=== PATIENT | male | born 1970 | race Caucasian/White ===

== ENCOUNTER 2019-05-11 08:55 | Day surgery (SDC) | payer OTHER ==
[~2019-05-11] VITALS: Ht 175.3 cm; Wt 120.7 kg
[~2019-05-11 08:55] MED LIST: HUMIRA10 MG/0.1; METFORMIN HCL500 MG PO
--- NOTE | 2019-05-11 13:26 | NUR ---
05/11/19 1326 Nehemiah Mahmood CBG 123 AT 1326. TIRE DUSTER AWARE.
--- NOTE | 2019-05-11 14:04 | NUR ---
ICED WATER GIVEN. CALL LIGHT IS WITHIN REACH. FAMILY AT THE BEDSIDE.
--- NOTE | 2019-05-11 14:35 | NUR ---
LE 1415: PT IS REQUESTING A SNACK, HE IS GIVEN SUGAR FREE JELLO AND PUDDING. DC CRITERIA IS REVIEWED.
--- NOTE | 2019-05-11 15:04 | NUR ---
PT IS REPORING MINIMAL PAIN, STATES IT IS MORE JUST DISCOMFORT. PT HAS BEEN ABLE TO EAT AND DRINK WITHOUT ISSUE. CALL LIGHT WITHIN REACH. AT BEDSIDE. NO ADDITIONAL NEEDS AT THIS TIME.
--- NOTE | 2019-05-11 15:34 | NUR ---
MELISA 1515: PT WOULD LIKE TO GO HOME AT THIS TIME. VERBAL DC INSTRUCTIONS ARE GIVEN TO THE PT AND . THEY BOTH VERBALIZE UNDERSTANDING. QUESTIONS ARE ASKED AND ANSWERED. PT IS EDUCATED ON HOW TO BEST DRESS HIMSELF AND TO OPEN HIS CURTAIN WHEN READY. PT IS TAKEN TO VEHICLE VIA WC. HE IS ABLE TO TRANSFER HIMSELF FROM WC TO VEHICLE.
--- NOTE | 2019-05-11 15:34 | NUR ---
MELISA 1510: PT WOULD LIKE TO GET UP OOB TO USE THE RESTROOM. HE IS ABLE TO AMBULATE HIMSELF TO AND FROM THE RESTROOM. HE IS ABLE TO VOID 325ML'S OF DARK YELLOW URINE.
--- NOTE | 2019-05-11 15:36 | OR ---
[facility] [address], [place] [address] Signed DATE OF OPERATION: 05/11/2019 SURGEON: Alexandra Serna MD PREOPERATIVE DIAGNOSIS: Reducible left inguinal hernia. POSTOPERATIVE DIAGNOSIS: Reducible left indirect inguinal hernia. PROCEDURE: Left Rachael onlay mesh inguinal herniorrhaphy. ESTIMATED BLOOD LOSS: None. INDICATIONS: Merle is a 48-year-old gentleman with a body mass index of 41. 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 Several months ago, he noticed pain and swelling in the left groin. He had been to his primary care provider. An ultrasound confirmed a left inguinal hernia containing fat. It seemed to be reducible. He also had small epididymal cyst. He had been to his urologist and they felt to leave that alone. He was asked to see me as a general surgeon for the inguinal hernia. It was difficult to ascertain on physical exam secondary to his body habitus. I gave him a brochure on hernias and we looked at that carefully together. He understands the nature of an inguinal hernia along with the difference between a primary suture repair and a mesh repair. He also understands the expected intraop and postop course. There is risk to surgery including, but not limited to, bleeding, infection, scarring, change in contour of the skin, damage to the nerves, ischemic orchitis, recurrent hernias, and chronic pain. He had expressed his understanding and wished to proceed. DESCRIPTION OF PROCEDURE: I met with Merle and his in our preop area. We all agreed it was the left groin and we marked that appropriately. After this, Merle was taken into operating room and placed in a supine position under general endotracheal tube anesthesia. He was given preoperative antibiotics along with subcutaneous heparin. SCDs were utilized. He was then prepped and draped in the usual sterile fashion. We made a standard oblique incision over the left groin and carried that down through the tissue bluntly and with the cautery. The external oblique fascia was opened along its length and developed medially and laterally. The ilioinguinal and iliohypogastric nerves were visualized and Electronically Signed By: ALEXANDRA SERNA MD 05/11/19 1536 PATIENT NAME: MERLE LONDON OPERATIVE REPORT DATE OF : 72 REPORT #: [id number] PHYSICIAN: ALEXANDRA SERNA MD PCP: MIKA ELISE PA-C REPORT IS CONFIDENTIAL AND NOT TO BE RELEASED WITHOUT AUTHORIZATION [facility] [address], [place] [address] Signed protected throughout the case. The cord structures were then elevated to the level of pubic tubercle with the help of a [place] drain. The direct space was intact. We dissected out the anteromedial side of the cord structures at the level of deep ring. We easily encountered his moderate-sized indirect inguinal hernia containing fat. It was sutured ligated at the neck, then amputated and passed off the field. After this, a piece of flat Prolene mesh was cut to fit his groin and a slit was made in the mesh to accommodate the cord structures at the level of the deep ring. The mesh was held in place medially and laterally with the help of running #1 Prolene suture. This gave excellent coverage of the direct and indirect spaces. There was no undue tension of the mesh around the cord structures at the level of deep ring. Local anesthetic was then copiously injected into wound. The wound was irrigated and suctioned out until clear. The external oblique fascia was closed over the repair with the help of a running 2-0 PDS suture. Chuck's fascia was reapproximated with a running 2-0 PDS suture. The dermis was reapproximated with interrupted 3-0 subcuticular Monocryl sutures. The skin was reapproximated with a running 5-0 fast-absorbing plain gut suture. Dry gauze and tape were then applied. Merle was then awakened from his anesthesia, extubated in the OR, and taken to recovery room in stable condition. Alexandra Serna MD ALB/MODL /[id number] cc: ELISHA Johnson MD Andrew L Bower, MD Copies: MIKA ELISE PA-C, ANDREW L MD ~ Electronically Signed By: ALEXANDRA SERNA MD 05/11/19 1536 PATIENT NAME: MERLE LONDON OPERATIVE REPORT DATE OF : 72 REPORT #: [id number] PHYSICIAN: ALEXANDRA SERNA MD PCP: MIKA ELISE PA-C REPORT IS CONFIDENTIAL AND NOT TO BE RELEASED WITHOUT AUTHORIZATION
== END 2019-05-11 15:20 | disposition home or self-care (01) ==
LOC: DS 08:55
PROVIDERS: Colon & Rectal Surgery
PROC: 0YU60JZ Supplement Left Inguinal Region with Synthetic Substitute, Open Approach (ICD-10-PCS; principal; 2019-05-11 11:15)
DX: K40.90 Unilateral inguinal hernia, without obstruction or gangrene, not specified as recurrent (principal); E11.9 Type 2 diabetes mellitus without complications; E78.00 Pure hypercholesterolemia, unspecified; G47.33 Obstructive sleep apnea (adult) (pediatric); M45.9 Ankylosing spondylitis of unspecified sites in spine; L72.0 Epidermal cyst; E66.9 Obesity, unspecified; Z79.84 Long term (current) use of oral hypoglycemic drugs; Z68.39 Body mass index [BMI] 39.0-39.9, adult
CPT/HCPCS: 90688; C1781; J0330; J0690; J1100; J1644; J1885; J2250; J2405; J2704; J3475; J7120